=== PATIENT | female | born 1955 | race Caucasian/White ===

== ENCOUNTER 2023-06-16 10:30 | Outpatient (RCR) | payer BC, MEDICARE, SELFPAY | END 2023-06-16 12:48 | disposition home or self-care (01) | PROVIDERS: PCP Family Medicine; Visit Provider Family Medicine | DX: R07.89 Other chest pain (principal); Z51.89 Encounter for other specified aftercare | CPT/HCPCS: 95992; 97110; 97162 ==

== ENCOUNTER 2023-07-12 18:48 | Emergency (ER) | payer BC, SELFPAY ==
[2023-07-12 19:11] VITALS: BP 165/92; PULSE 81; RESP 18; TEMP 36.6; O2SAT 97; BMI 33.3
--- NOTE | 2023-07-12 19:55 | ED_ITS ---
HPI - General Adult General Chief complaint: Chest Pain Stated complaint: Pain under left breast Time Seen by Provider: 07/12/23 19:54 History of Present Illness HPI narrative: Patient here today with a sharp chest pain developing under left breast after carrying groceries and furniture up her steps. Took a nap thinking that would resolve it, woke up and it was still there but less severe and more uncomfortable . Resolved now . Called her clinic and told to come into the ER for an evaluation. 68-year-old woman presenting to the emergency department with complaint of sharp chest pain underneath her left breast. She says she has had this sensation before in usually occurs after or during a period of exertion. Today had been going up a couple flights of stairs ended up caring something given to her by a friend and directly after this started to have this sharp chest discomfort underneath her left breast. In times before can sometimes feel like her heart is beating hard. She does not recall tachycardia or palpitations otherwise. Pain-free at the moment. Lasted maybe 6 hours or so resolving around time of presentation in the emergency department. Head anticipated seeing her primary next day but was contacted again by triage line recommended to come to the emergency department. She does not have known cardiovascular disease she says. Does take metoprolol reported in our record a 25 mg daily but she says it is 12.5 per dose. She feels generally fatigued being on metoprolol. Did need to take a nap this morning. Has not had any fever. Is not short of breath. There is no nausea or diaphoresis. No rashes/blisters. Does have episodes of ligh theadedness and dizziness historically but was not feeling that here today. There was concern that this might also be related to metoprolol. History of hydrochlorothiazide for blood pressure control but due to some affect on kidney she reports was transition to lisinopril until had lip swelling and now taking metoprolol. Related Data Home Medications Medication Instructions Recorded Confirmed mirtazapine 30 mg tablet 15 mg PO .hs 08/04/22 08/04/22 metoprolol succinate 25 mg 25 mg PO DAILY 07/12/23 07/12/23 tablet,extended release 24 hr Allergies Allergy/AdvReac Type Severity Reaction Status Date / Time lisinopril Allergy Intermediate Swelling Verified 07/12/23 19:03 of Lip/Tongue/Throat Penicillins Allergy Mild Diarrhea Verified 08/04/22 16:19 Sulfa (Sulfonamide Allergy Mild Diarrhea Verified 08/04/22 16:19 Antibiotics) Review of Systems Status of ROS: Reports: 6 or more systems reviewed and unremarkable except as noted in History and below [facility] Social History Smoking Status: Never smoker Do you use any of these nicotine containing products: None Second hand tobacco smoke exposure: No How often do you have a drink containing alcohol: never How often do you have six or more drinks on one occasion: Never AUDIT-C Alcohol total score: 0 Non-prescribed substance use: denies use service: No Exam 2 Narrative: Exam Narrative: Very pleasantly talkative. NAD. Breathing easily. No JVD. Cranial nerves 2- 12 intact. Lungs are clear. Heart in a regular rate and rhythm. There is a 1/6 systolic murmur which she thinks might be new. Abdomen is overweight soft and nontender. Lower extremities with maybe a little dependent bilateral edema, nonpitting. Moving all extremities without difficulty, with good strength. She is well-perfused. Not able to reproduce this discomfort to palpation about the chest. No swellings there. Const: Vital Signs, click to edit/add: Vital Signs - 24 hr 07/12/23 19:11 07/12/23 21:00 07/12/23 21:05 Temperature 97.9 F Pulse Rate [Right Pulse Oximeter] 81 Pulse Rate [orthos tatic lying] 70 Pulse Rate [orthos tatic sitting] 75 Pulse Rate [orthos tatic standing] Respiratory Rate 18 Blood Pressure [Ri ght Upper Arm] 165/92 H Blood Pressure [or thostatic lying] 144/87 H 147/98 H Blood Pressure [or thostatic sitting] 147/98 H Blood Pressure [or thostatic standing ] Pulse Oximetry 97 Oxygen Delivery Me thod Room Air 07/12/23 21:10 Temperature Pulse Rate [Right Pulse Oximeter] Pulse Rate [orthos tatic lying] Pulse Rate [orthos tatic sitting] Pulse Rate [orthos tatic standing] 77 Respiratory Rate Blood Pressure [Ri ght Upper Arm] Blood Pressure [or thostatic lying] Blood Pressure [or thostatic sitting] Blood Pressure [or thostatic standing ] 150/91 H Pulse Oximetry Oxygen Delivery Me thod Documenting provider has reviewed patient's vital signs: yes Course Vital Signs Vital signs: Initial Vital Signs Temperature 97.9 F 07/12/23 19:11 Temperature Source Temporal Artery Scan 07/12/23 19:11 Pulse Rate 81 07/12/23 19:11 Pulse Rhythm Regular 07/12/23 19:11 Respiratory Rate 18 07/12/23 19:11 Blood Pressure 165/92 H 07/12/23 19:11 Blood Pressure Mean 116 H 07/12/23 19:11 Blood Pressure Position Sitting 07/12/23 19:11 Pulse Oximetry 97 07/12/23 19:11 Oxygen Delivery Method Room Air 07/12/23 19:11 Vital Signs Temperature 97.9 F 07/12/23 19:11 Pulse Rate 81 07/12/23 19:11 Respiratory Rate 18 07/12/23 19:11 Blood Pressure 165/92 H 07/12/23 19:11 Pulse Oximetry 97 07/12/23 19:11 Oxygen Delivery Method Room Air 07/12/23 19:11 Temperature 97.9 F 07/12/23 19:11 Pulse Rate 77 07/12/23 21:10 Respiratory Rate 18 07/12/23 19:11 Blood Pressure 150/91 H 07/12/23 21:10 Pulse Oximetry 97 07/12/23 19:11 Oxygen Delivery Method Room Air 07/12/23 19:11 Medical Decision Making MDM Narrative Medical decision making narrative: Would be prudent to evaluate for ischemic cardiovascular disease. Will be monitoring on air sampling and monitoring for potential arrhythmia. Does sound somewhat anginal this discomfort. Perhaps heart failure though not really evidenced on physical exam. Look for pneumonia, pneumothorax, the pulmonary mass or unusual mediastinum. Does not appear to have sustained an injury to the chest wall; not reproducible on physical exam and furthermore this has occurred before. Will need to evaluate orthostatics. Might consider some other options to beta-jahaira She notes a history of aortic stenosis on further recollection. Orthostatics were normal and Ms. Kim was asymptomatic Perhaps aortic stenosis in combination with a beta-jahaira might be more challenging to physical exertion/activities. However was not orthostatic here today. Not able to do cardiac echo here in the ER at this time and reports relatively recent one. Chest x-ray reviewed by me other than port is unremarkable Overall well. Labs are reassuring. No events on monitor See patient discharge plan Medical Records Medical records reviewed: Yes I reviewed the patient's medical records Lab Data Lab results reviewed: Yes I reviewed the patient's lab results Labs: Lab Results 07/12/23 07/12/23 Range/Units 20:13 20:36 Hgb 14.3 (12.0-16.0) gm/dL Sodium 140 (135-149) mmol/L Potassium 4.4 (3.6-5.1) mmol/L Chloride 104 (96-114) mmol/L Carbon Dioxide 30 (20-32) mmol/L Anion Gap 6 L (7-15) mEq/L BUN 16 (7-30) mg/dL Creatinine 0.8 (0.5-1.5) mg/dL Estimated Creat Clear 49.12 Estimated GFR 81 ml/min Glucose 154 H (60-115) mg/dL Calcium 9.9 (8.4-10.6) mg/dL Troponin I < 0.01 L (0.01-0.04) ng/mL C-Reactive Protein < 0.5 L (0.5-1.0) mg/dL NT-Pro-B Natriuret Pep 101 pg/mL POC Troponin I 0.00 L (0.01-0.04) ng/ml ECG Data Attestation: I personally reviewed and interpreted this ECG as follows: Discharge Plan Discharge Clinical Impression: Chest pain Patient Disposition: Home, Self-Care Condition: Stable Additional Instructions: A pleasure taking care of you tonight. All your labs and chest x-ray looked good. There were no events on heart monitor. Your welcome to take copies of these labs and this EKG to your follow-up appointment with your primary care provider. I am sure they be happy to discuss your concerns related to medication. Might want to discuss whether not you would like to do further evaluation of this chest pain given that you had fairly recent stress test/echocardiogram. Otherwise return for persistent increased chest pain, particularly associated with shortness of breath, diaphoresis, nausea. Prescriptions: No Action mirtazapine 30 mg tablet 15 mg PO .hs metoprolol succinate 25 mg tablet extended release 24 hr 25 mg PO DAILY Follow Up/Referrals: Mary Garsia, DO [Primary Care Provider] - Stand Alone Forms: [facility]
--- NOTE | 2023-07-12 20:13 | CRLHL7_ITS ---
For Patients: As a result of the Century Cures Act, medical imaging exams and procedure reports are released immediately into your electronic medical record. You may view this report before your referring provider. If you have questions, please contact your health care provider. INDICATION: Left-sided chest pain COMPARISON: None TECHNIQUE: PA and lateral views of the chest were acquired FINDINGS: TUBES AND LINES: Right IJ port appears to be normally located HEART AND MEDIASTINUM: The heart size is normal. The mediastinal contour appears normal for patient age. LUNGS AND PLEURAL SPACES: The lungs appear normal.The pleural spaces are unremarkable. OSSEOUS STRUCTURES: Age-appropriate appearance. No acute focal finding. IMPRESSION: No evidence of active pulmonary disease. Right IJ port normally located. Dictated by Med Moreno MD @ 07/12/2023 8:59:04 PM (Electronically Signed)
[2023-07-12 20:48] LABS: Hemoglobin* 14.3 gm/dL (12.0-16.0)
[2023-07-12 21:00] VITALS: BP 144/87; PULSE 70
[2023-07-12 21:05] VITALS: BP 147/98; PULSE 75
[2023-07-12 21:06] LABS: Chloride* 104 mmol/L (96-114); Potassium* 4.4 mmol/L (3.6-5.1); Sodium* 140 mmol/L (135-149)
[2023-07-12 21:08] LABS: Creatinine* 0.8 mg/dL (0.5-1.5); Est. Creatinine Clearance* 49.12; Estimated Glomerular Filt Rate 81 ml/min
[2023-07-12 21:09] LABS: Anion Gap 6 mEq/L (7-15); Blood Urea Nitrogen* 16 mg/dL (7-30); Carbon Dioxide* 30 mmol/L (20-32)
[2023-07-12 21:10] VITALS: BP 150/91; PULSE 77
[2023-07-12 21:10] LABS: Calcium* 9.9 mg/dL (8.4-10.6); Glucose* 154 mg/dL (60-115)
[2023-07-12 21:17] LABS: C Reactive Protein* < 0.5 mg/dL (0.5-1.0)
[2023-07-12 21:28] LABS: NT Pro B Type NatriureticPept* 101 pg/mL; Troponin I* < 0.01 ng/mL (0.01-0.04)
== END 2023-07-12 22:43 | disposition home or self-care (01) ==
PROVIDERS: Emergency Provider Family Medicine; PCP Family Medicine
DX: R07.9 Chest pain, unspecified (principal)
CPT/HCPCS: 36415; 71045; 80048; 83880; 84484; 85018; 86140; 93005; 99284; 99285

== ENCOUNTER 2024-01-24 14:00 | Outpatient (RCR) | payer BC, SELFPAY | END 2024-05-23 23:59 | disposition home or self-care (01) | PROVIDERS: PCP Family Medicine; Visit Provider Physician Assistant | DX: M25.562 Pain in left knee (principal); Z51.89 Encounter for other specified aftercare | CPT/HCPCS: 97110; 97162 ==

== ENCOUNTER 2024-06-05 12:35 | Outpatient (CLI) | payer BC, SELFPAY ==
--- OUTSIDE RECORDS SUMMARY | 2024-06-05 12:42 | XMS_ITS | Clinical Summary ---
Author Organization [facility] Address [address] [address] Care Team Providers Care Manager Target Name Role Phone Needs Pcp, Assignment Primary Care Provider [phone] Source Comments You are receiving this document as you are listed as the primary care provider,follow-up provider, or the patient has been referred to you for consultation.This is in compliance with the Medicare and[facility] E[facility] Incentive Program,which states Providers who transition their patient to another setting of careor provider of care or refers their patient to another provider of care shouldprovide summary care record for each transition of care or referral. [facility] Allergies Active Allergy Reactions Criticality Noted Date Comments Penicillins Other, see comments 08/02/2021 Diarrhea Medications Medication Sig Dispensed Refills Start Date End Date Status omega-3 fatty acids (FISH OIL) 1000 MG capsule Take 1 Capsule by mouth daily. Active mirtazapine (REMERON) 30 MG tablet Take 30 mg by mouth. 05/20/2021 Active lisinopril (ZESTRIL) 20 MG tablet Take 1 Tablet by mouth daily. 05/20/2021 Active fluticasone propionate (FLONASE) 50 MCG/ACT nasal solution 2 Sprays by Nasal route. 05/20/2021 Active cetirizine (ZYRTEC) 10 MG tablet Take 1 Tablet by mouth daily. 05/20/2021 Active buPROPion (WELLBUTRIN XL) 150 MG 24 hour release tablet 06/16/2021 Active aspirin 325 MG tablet Take 325 mg by mouth. Active amphetamine-dextroamp hetamine (ADDERALL) 20 MG tablet 06/16/2021 Active ALBUterol sulfate HFA 108 (90 Base) MCG/ACT inhaler INHALE TWO PUFFS BY MOUTH FOUR TIMES A DAY NEEDED 05/20/2021 Active acyclovir (ZOVIRAX) 400 MG tablet TAKE ONE TABLET BY MOUTH THREE TIMES A DAY FOR 5 DAYS NEEDED FOR OUTBREAK 03/30/2021 Active cyanocobalamin 100 MCG tablet Take 50 mcg by mouth daily. Active Pyridoxine HCl (VITAMIN B-6) 100 MG tablet Take 100 mg by mouth daily. Active folic acid 1 MG tablet Take 1 mg by mouth daily. Active cholecalciferol (VITAMIND3) 50 MCG (2000 UT) tablet Take 2,000 Units by mouth daily. Active Active Problems Problem Noted Date Diagnosed Date Thyroid nodule 08/02/2021 Social History Tobacco Use Types Packs/Day Years Used Date Smoking Tobacco: Never Smokeless Tobacco: Never Sex and Gender Information Value Date Recorded Sex Assigned at Not on file Gender Identity Not on file Sexual Orientation Not on file Last Filed Vital Signs Vital Sign Reading Time Taken Comments Blood Pressure 141/88 08/02/2021 8:32 AM CDT Pulse 85 08/02/2021 8:32 AM CDT Temperature - - Respiratory Rate - - Oxygen Saturation - - Inhaled Oxygen Concentration - - Weight 86.6 kg (190 lb 14.4 oz) 08/02/2021 8:32 AM CDT Height 165.1 cm (5' 5) 08/02/2021 8:32 AM CDT Body Mass Index 31.77 08/02/2021 8:32 AM CDT Plan of Treatment Health Maintenance Due Date Last Done Comments Colon Cancer Screening Plan Due 1955 Hep C Screening (Preventive Services) 1955 Medicare Annual Wellness Visit 1955 Cholesterol 2001 Zoster/Shingles (1 of 2) 2006 Pneumococcal 65+ Yrs (1 - PCV) 2021 Mammogram 06/23/2022 06/23/2021 COVID-19 Vaccine (3 - 2022-2 4 season) 2023 03/29/2021, 03/01/2021 Influenza (#1) 2024 DTaP/Tdap/Td (2 - Tdap) 06/19/2028 06/19/2018 Dexa Completed 06/23/2021 HepA Aged Out No longer eligi ble based on patient's age to complete this topic HepB Aged Out No longer eligi ble based on patient's age to complete this topic Hib Aged Out No longer eligi ble based on patient's age to complete this topic IPV (Polio) Aged Out No longer eligi ble based on patient's age to complete this topic MCV4 Aged Out No longer eligi ble based on patient's age to complete this topic Care Teams Manager Target Relationship Specialty Start Date End Date Needs Pcp, [place], [place] [id number] PCP - General 05/13/22
--- OUTSIDE RECORDS SUMMARY | 2024-06-05 12:42 | XMS_ITS | Clinical Summary ---
Author Organization [facility] Address [place], [place] [address] Care Team Providers Care Bagging Salvager Name Role Phone RyanMary recinos Primary Care Provider [phone] Carmenza Crowder MD Unavailable [phone] Laura Myers MD Unavailable [phone] Unavailable [phone] Allergies Active Allergy Reactions Criticality Noted Date Comments Amlodipine Intolerance-Can't Take 12/01/2022 Multiple random symptoms reported. Unclear if related to medication. See message 12/01/22 Rosuvastatin Myalgia 02/13/2019 Fentanyl Itching 04/27/2020 Hydrochlorothiazide Hypokalemia 12/01/2022 Atorvastatin Myalgia 08/03/2017 Lisinopril Angioedema High 11/08/2022 Lip swelling Enoxaparin Flushing 05/07/2020 Chest tightness Penicillins Diarrhea 10/02/2012 Loose stool Medications Medication Sig Dispensed Refills Start Date End Date Status Fish Oil-[place]-3 Fatty Acids (FISH OIL) 300-1,000 mg cap Take 1 capsule by mouth once daily. Active albuterol HFA (PRO-AIR; VENTOLIN; PROVENTIL) 90 mcg/actuation inhalerIndication s:Bronchitis,Coug h, unspecified type,Chest tightness INHALE TWO PUFFS BY MOUTH FOUR TIMES DAILY NEEDED 18 g 1 09/21/20 22 Active EPINEPHrine (EPIPEN) 0.3 mg/0.3 mL auto-injectorIndi cations:Angioedem a, initial encounter Inject 0.3 mg (1 pen) intramuscular each time if needed for Allergic Reaction. 2 Each 3 11/08/19 23 Active azelastine 137 mcg/actuation (ASTELIN) nasal sprayIndications: Angioedema, initial encounter Inhale 1 [place] into affected nostril(s) two times daily. 90 mL 1 04/05/20 Active blood-glucose meterIndications: Uncontrolled type 2 diabetes mellitus with hyperglycemia (HC) by Not Applicable route. Dispense meter, test strips, lancets covered by pt ins. E11.9 NIDDM type II - Test 2 times/day. Reason: New diabetes 1 Each 05/25/20 23 Active fluticasone (50 mcg per actuation) nasal solution (FLONASE)Indicati ons:Rhinitis, unspecified type SPRAY TWO SPRAYS INTO EACH NOSTRIL ONCE DAILY DIRECTED 48 g 3 09/07/20 Active cholecalciferol (Vitamin D-3) 2,000 unit capsuleIndication s:Vitamin D deficiency Take 2 Capsules (4,000 units) by mouth once daily. 180 Capsule 3 11/07/19 24 Active Additional Information Patient taking differently: 2,000 unitOral DAILY, Reported on 04/10/2024 mirtazapine (REMERON) 30 mg tabletIndications :Generalized anxiety disorder,Depressi on, unspecified depression type,Obsessive-co mpulsive disorder, unspecified type Take 0.5 Tablets (15 mg) by mouth at bedtime. 90 Tablet 3 11/14/19 24 Active omeprazole 20 mg tabletIndications :Throat clearing Take 1 Tablet (20 mg) by mouth once daily before a meal. 30 Tablet 3 12/26/19 24 Active Additional Information Patient taking differently:20 mg Oral ONCE DAILY BEFORE A MEAL,PRN, Indications: gastroesophageal reflux disease, Reported on 03/18/2024 miscellaneous medical supply (Blood Pressure Cuff) miscIndications:H TN (hypertension) As directed. BP cuff for home monitoring. Diagnosis: htn 1 Each 01/04/20 24 Active FreeStyle Claudia 3 Sensor for continuous blood glucose monitor (CGM)Indications: Uncontrolled type 2 diabetes mellitus with hyperglycemia (HC) To be used to read blood sugars, follow deputy sheriff bailiff directions. 6 Each 3 01/25/20 24 Active FreeStyle Claudia 3 [place] for continuous blood glucose monitor (CGM)Indications: Uncontrolled type 2 diabetes mellitus with hyperglycemia (HC) To be used to read blood sugars follow deputy sheriff bailiff directions. 1 Each 02/08/20 24 Active metFORMIN (GLUCOPHAGE XR) 500 mg Extended-Release tabletIndications :Uncontrolled type 2 diabetes mellitus with hyperglycemia (HC) Take 1 Tablet (500 mg) by mouth once daily with evening meal. 90 Tablet 3 02/12/20 24 Active acyclovir (ZOVIRAX) 400 mg tabletIndications :Genital herpes simplex, unspecified site TAKE ONE TABLET BY MOUTH THREE TIMES A DAY FOR 5 DAYS NEEDED FOR OUTBREAK. 90 Tablet 1 02/19/20 24 Active spironolactone (ALDACTONE) 25 mg tabletIndications :HTN (hypertension) Take 1 Tablet (25 mg) by mouth once daily in the morning. 04/04/20 24 Active nystatin powder (Nyamyc) powderIndications :Skin yeast infection APPLY 1 STRIP TOPICALLY TO AFFECTED AREA(S) 3 TIMES DAILY 60 g 1 04/10/20 24 Active buPROPion (WELLBUTRIN XL) 150 mg Extended-Release tabletIndications :Depression, major, in remission (HC) Take 1 Tablet (150 mg) by mouth once daily in the morning. 90 Tablet 3 04/24/20 24 Active fexofenadine (Allergy Relief, fexofenadine,) 180 mg tabletIndications :Seasonal allergies TAKE ONE TABLET BY MOUTH ONCE EVERY DAY . DO NOT CRUSH OR CHEW. 90 Tablet 3 05/06/20 24 Active dextroamphetamine -amphetamine (ADDERALL XR) 15 mg Extended-Release capsuleIndication s:Attention deficit hyperactivity disorder (ADHD), unspecified ADHD type Take 1 Capsule (15 mg) by mouth once daily in the morning 20 Capsule 05/22/20 24 Active diclofenac topical (VOLTAREN) 1 % gelIndications:Os teoarthritis of left knee, unspecified osteoarthritis type Apply 4 g topically to affected area(s) 4 times daily if needed (knee pain). 450 g 05/20/20 24 Active dextroamphetamine -amphetamine (AdderalL) 10 mg tabletIndications :Attention deficit hyperactivity disorder (ADHD), unspecified ADHD type Take 1 Tablet (10 mg) by mouth once daily. 10 Tablet 05/22/20 24 024 Active dextroamphetamine -amphetamine (Adderall XR) 15 mg Extended-Release capsuleIndication s:Attention deficit hyperactivity disorder (ADHD), unspecified ADHD type Take 1 Capsule (15 mg) by mouth once daily in the morning. 30 Capsule 04/24/20 24 024 Discontinued methylPREDNISolon e (Medrol, Chu,) 4 mg tabletIndications :Chronic pain of left knee Take by mouth as instructed per packaging. 21 Tablet 05/17/20 24 024 Discontinued(* Patient states no longer taking) metroNIDAZOLE 0.75% vaginal (METROGEL) 0.75 % (37.5mg/5 gram) vaginal gelIndications:Ba cterial vaginosis Insert 1 Applicatorful into the vagina at bedtime for 5 days. 70 g 05/30/20 24 024 Active Problems Problem Noted Date Diagnosed Date Newly diagnosed diabetes 11/08/2022 Thyroid nodule 07/06/2020 Overview: FNA 06/2020 Benign Colloid Nodule. (0-3% risk becoming malignant overtime) Pperiodic ultrasound monitoring of benign thyroid nodules recommended, initially at 12 to 24 months, then at increasing intervals over time (eg, two to five years) per UTD Pelvic mass 04/28/2020 Cervical high risk HPV (human papillomavirus) te st positive 04/01/2020 Overview: 2005 Abnormal pap 2006 Abnormal pap 2007 Abnormal pap 2007 [place]: result unknown 09/13/2013 NIL/HPV Negative 08/21/2017 UNS/HPV Negative 04/01/2020 NIL/HPV Positive; HPV 16/18 Negative Plan: Repeat Pap/HPV testing in 1 year (DUE 03/2021) Prediabetes 06/19/2018 Genital herpes 11/07/2016 Hyperlipidemia 04/22/2014 Hypertension 01/30/2013 Fibromyalgia 01/30/2013 OCD (obsessive compulsive disorder) 01/30/2013 Overview: Hoarding Generalized anxiety disorder 01/30/2013 Depression 01/30/2013 Attention deficit disorder without mention of hy peractivity 09/12/2012 Overview: Gets Adderall 20mg daily, 28 day supplies Resolved Problems Problem Noted Date Diagnosed Date Resolved Date Ovarian cancer on right 11/08/202211/07 Delusions 07/23/2015 10/26/2023 Anxiety state, unspecified 09/12/2012 0 01/30/2013 Overview: OCD spectrum as well as PTSD aspects both rather strong, with rule out on full spectrum OCD Encounters Date Type Department Care Team Description 06/04/2024 11:00 AM CDT Procedure Only [facility] [address] [facility] [place] [address] Rafael Shin L Ac Acupuncture 06/04/2024 Travel 05/30/2024 Orders Only [facility] [facility] [place] [address] Mary Garsia, <No scans attached> 05/29/2024 10:50 AM CDT Office Visit [facility] [address] [facility] [place] [address] Mary Garsia DO Leg Pain/problem (heaviness) 05/28/2024 11:30 AM CDT Office Visit [facility] [address] [place] [address] Jing Garcia PA Follow Up (Knee pain-was supposed to have MRI but it was cancelled) 05/28/2024 Travel 05/27/2024 Nurse Triage [facility] [address] [place] [address] Mary Garsia DO Leg Pain/problem 05/23/2024 Telephone [facility] [address] [place] [address] Abstract (did you call the patient today ? ) 05/20/2024 7:55 AM CDT Office Visit [facility] [address] [place] [address] Mary Garsia DO Medication Management 05/19/2024 Travel 05/19/2024 Refill [facility] [address] [place] [address] Mary Garsia DO Refill Request (Dextroamphetamine- amphetamine) 05/17/2024 1:30 PM CDT Office Visit [facility] [address] [place] [address] Jing Garcia PA Knee Pain/problem (Started having knee problem a few years ago-has been using knee sleeve-swells and hurts on the outside) 05/17/2024 11:00 AM CDT Procedure Only [address] [address] Rafael Shin L Ac Acupuncture 05/17/2024 Travel 05/17/[address] [address] Zoie Acuña PA Referral 05/16/[address] [address] Zoie Acuña PA Questions (medical messaging) 05/15/2024 Medical Messaging [address] [address] Mary Garsia DO Referrals for P.T.where do I see them or who would I ask 05/14/2024 9:00 AM CDT Ancillary Procedure [address] [address] 05/14/2024 Travel 05/07/2024 11:00 AM CDT Procedure Only [address] [address] Rafael Shin L Ac Acupuncture 05/07/2024 8:15 AM CDT Office Visit [address] [address] Zoie Acuña PA Back Pain 05/07/2024 Travel 05/05/[address] [address] Mary Garsia DO Refill Request (Allergy Relief (Fexofenadine)) 04/26/2024 11:00 AM CDT Procedure Only [facility] [address] [facility] [address] Rafael Shin L Ac Acupuncture 04/26/2024 Travel 04/24/2024 7:55 AM CDT Office Visit [facility] [address] [place] [address] Mary Garsia DO Follow Up 04/24/2024 Travel 04/19/2024 11:00 AM CDT Procedure Only [facility] [address] [place] [address] Rafael Shin L Ac Acupuncture 04/19/2024 Travel 04/15/2024 2:55 PM CDT Office Visit [facility] [address] [place] [address] Zoie Acuña PA Bite 04/15/2024 11:30 AM CDT Orders Only [facility] [place] [address] Lab, [facility] 04/15/2024 Travel 04/12/2024 11:00 AM CDT Procedure Only [facility] [address] [place] [address] Rafael Shin L Ac Acupuncture 04/12/2024 Travel 04/10/2024 7:55 AM CDT Office Visit [facility] [address] [facility] [address] Mary Garsia DO Dizziness 04/10/2024 Travel 04/05/2024 11:00 AM CDT Procedure Only [facility] [address] Rafael Shin L Ac Acupuncture 04/05/2024 Orders Only [facility] Scanner 1 scan: (1-Ord) [facility], 04/05/2024 04/05/2024 Travel 04/04/2024 8:20 AM CDT Office Visit [facility] [address] [facility] [address] Mary Garsia DO Follow Up 04/03/2024 Travel 04/02/2024 4:51 PM CDT - 04/02/2024 11:59 PM CDT Hospital Encounter [facility] [address] [place] [address] Mary Garsia, Left lower quadrant abdominal pain; History of ovarian cancer 04/02/2024 Travel 03/28/2024 11:00 AM CDT Procedure Only [facility] [address] [facility] [place] [address] Rafael Shin L Ac Acupuncture 03/28/2024 Travel 03/27/2024 1:05 PM CDT Office Visit [facility] [address] [facility] [place] [address] Mary Garsia DO Follow Up 03/27/2024 Travel 03/18/2024 11:00 AM CDT Procedure Only [facility] [address] [place] [address] Rafael Shin L Ac Acupuncture 03/18/2024 7:30 AM CDT Office Visit [facility] [address] [facility] [place] [address] Mary Garsia DO Pain (Left side pain on and off 1 month) 03/18/2024 Nurse Triage [facility] [address] [place] [address] Maria Victoria Eduardo MD Medication Problem 03/17/2024 Travel 03/16/2024 Telephone [facility] [address] [facility] [place] [address] Christi Pearce DO Abnormal Lab Results 03/16/2024 Nurse Triage [facility] [address] [place] [address] Mary Garsia DO Vaginal Problem 03/15/2024 1:05 PM CDT Office Visit [facility] [address] [place] [address] Maria Victoria Eduardo MD Pelvis Pain/problem (Bilateral pelvic pain off and on x 2 weeks /Some discomfort when urinating ) 03/15/2024 Travel 03/11/2024 11:00 AM CDT Procedure Only [facility] [address] [facility] [address] Rafael Shin L Ac Acupuncture 03/11/2024 7:30 AM CDT Office Visit [facility] [address] [facility] [address] Mary Garsia DO Medication Management (abilify) 03/11/2024 Travel 03/07/2024 1:00 PM CDT Procedure Only [facility] [address] [facility] [address] Rafael Shin L Ac Acupuncture 03/07/2024 Travel 03/05/2024 9:10 AM CDT Office Visit [facility] [address] [facility] [address] Mary Garsia, Blood Pressure (compare blood pressure machines. ); Medication Management (Adderall - check/Abilify - took for 2 days then stopped. feeling off balance, blurry vision/Metformin - heartburn); Cough (consistantly clearing throat and coughing up phlegm ); Vaginal Problem (bump in vaginal area, for 2 days) from Last 3 Months Immunizations Name Administration Dates Next Due COVID-19 vaccine (Moderna 100mcg/0.5mL) SHELLEY FENG 03/29/2021,03/01/2021 COVID-19 vaccine (Pfizer-Bio NTech 30mcg/0.3mL) 12YO+ BIVALENT SHELLEY FENG 09/21/2022 Tdap 06/19/2018 Family History Medical History Relation Name Comments Psychiatric illness Father Dementia , depression Cancer-breast Maternal Grandmother Heart Disease Mother Psychiatric illness Mother Depressi on, anxiety Cancer-breast Other Maternal Cousin x2 Cancer-breast Paternal Grandmother Cancer-ovarian No Family History Relation Name Status Comments Father Maternal Grandmother Mother Alive Other Maternal Cousin Paternal Grandmother Sister Alive Social History Tobacco Use Types Packs/Day Years Used Date Smoking Tobacco: Never Passive Smoke Exposure: Never Smokeless Tobacco: Never Tobacco Cessation:Counseling Given: Yes Alcohol Use Standard Drinks/Week Comments Yes 0 (1 standard drink = 0.6 oz pur e alcohol) PHQ-2 Answer Date Recorded PHQ-2 TOTAL SCORE 6 04/24/2024 Social Connections Answer Date Recorded Frequency of Communication with Friends and Fami ly 0 03/27/2024 Alcohol Use Answer Date Recorded How often do you have a drink containing alcohol ? 2 09/21/2022 How many drinks containing a lcohol do you have on a typical day when you are drinking? 0 09/21/2022 How often do you have five or more drinks on one occasion? 0 09/21/2022 Financial Resource Strain Answer Date R ecorded Difficulty of Paying Living Expenses 3 03/27/2024 Difficulty of Paying Living Expenses Not on file 03/27/2024 Food Insecurity Answer Date Recorded Worried About Running Out of Food in the Last Ye ar 1 03/27/2024 Transportation Needs Answer Date Record ed Lack of Transportation (Medical) 1 03/27/2024 Housing Stability Answer Date Recorded Unable to Pay for Housing in the Last Year 1 03/27/2024 Sex and Gender Information Value Date Recorded Sex Assigned at Not on file Gender Identity Female 04/03/2023 8:44 PM CDT Sexual Orientation Not on file Obstetrics History Para Term AB IAB SAB Ectopic Multiple Livin g Live Births 2 2 2 2 Date Outcome GA Total Labor Labor/2nd/3rd Weight Sex Type Anes PTL Joleen A1 A5 Name Clin Term Term Last Filed Vital Signs Vital Sign Reading Time Taken Comments Blood Pressure 140/80 05/29/2024 11:42 AM CDT Pulse 83 05/29/2024 10:53 AM CDT Temperature 37.2 ??C (99 ??F) 04/15/2024 10:48 AM CDT Respiratory Rate 14 05/11/2020 8:00 AM CDT Oxygen Saturation 97% 05/29/2024 10:53 AM CDT Inhaled Oxygen Concentration - - Weight 80.3 kg (177 lb) 05/29/2024 10:53 AM CDT Height 165.7 cm (5' 5.25) 03/15/2024 1:18 PM CD T Body Mass Index 29.23 03/15/2024 1:18 PM CDT Plan of Treatment Upcoming Encounters Date Type Department Care Team (Late st Contact Info) Description 06/13/2024 1:05 PM CDT Office Visit [facility] [address] [place] [address] Mary Garsia DO [address] [facility] [address] 06/14/2024 11:00 AM CDT Procedure Only [facility] [address] [facility] [place] [address] Rafael Shin L Ac [address] [facility] [address] 06/19/2024 8:20 AM CDT Office Visit [facility] [address] [facility] [address] Mary Garsia DO [address] [place] [address] 2024 11:00 AM CDT Procedure Only [facility] [address] [place] [address] Rafael Shin L Ac [address] [place] [address] 06/27/2024 1:05 PM CDT Office Visit [facility] [address] [place] [address] Mary Garsia DO [address] [place] [address] 07/10/2024 8:45 AM CDT Office Visit [facility] [address] [place] [address] Mary Garsia DO [address] [place] [address] 07/18/2024 7:55 AM CDT Office Visit [facility] [address] [place] [address] Mary Garsia DO [address] [place] [address] Health Maintenance Due Date Last Done Comments Pneumococcal series for age 65+ (1 of 2 - PCV) 1962 Colonoscopy through age 75 2001 Zoster (shingles) series for age 50+ (1 of 2) 2006 Medicare Wellness for age 65+ 2021 COVID-19 vaccine series ( season) 2023 09/21/2022, 10/22/2021, 03/29/2021, Additional history exists Influenza for age 65+ 07/07/2024 Mammogram for age 45-75 11/13/2024 11/13/19, 07/25/2022, 06/23/2021, Additional history exists BMI (ht and wt on same day) for age 18+ 03/15/2025 03/15/2024, 12/05/2022, 05/20/2021, Additional history exists Depression screening for age 12+ 04/24/2025 04/24/2024, 04/18/2023, 09/21/2022, Additional history exists Lipids for age 45-75 02/07/2028 02/06/2023, 09/21/2022, 06/14/2021, Additional history exists Tetanus booster 06/19/2028 06/19/2018 Tdap Completed 06/19/2018 DEXA/DXA scan for age 65+ Completed 06/23/2021 Hepatitis C screening for ag e 18-79 Completed 03/15/2022 Medical Devices Implanted Type Area Field Hauler Device Identifier Shelf Expiration Date Model / Serial / Lot Adhesion Barrier 5x6in Seprafilm Absorb - [id number] Implanted:Qty: 5 on 05/07/2020 by Laura Myers MD at [facility] [employer] 10/05/2022 [id number] / / [id number] Procedures Procedure Name Priority Date/Time Associated Diagnosis Comments ACUPUNCTURE PLAN OF CARE Routine 06/04/2024 10:53 AM CDT Other low back pain PROTIME-INR Routine 05/29/2024 12:15 PM CDT Bruising CREATININE Routine 05/29/2024 12:15 PM CDT HTN (hypertension) TRICHOMONAS, TERRANCE, AND BACTERIAL VAGINOSIS BY SAMMY Routine 05/29/2024 11:45 AM CDT Vaginal burning HEPATIC FUNCTION PANEL Add On 05/28/2024 12:43 PM CDT Bruising CBC WITH AUTO DIFFERENTIAL Routine 05/28/2024 12:43 PM CDT Easy bruising IRON PLUS IRON BINDING CAP Routine 05/28/2024 12:43 PM CDT Easy bruising FERRITIN Routine 05/28/2024 12:43 PM CDT Easy bruising VITAMIN B12 Routine 05/28/2024 12:43 PM CDT Easy bruising CBC WITH AUTO DIFFERENTIAL Routine 05/28/2024 12:43 PM CDT Easy bruising ACUPUNCTURE PLAN OF CARE Routine 05/17/2024 11:07 AM CDT Other low back pain US THYROID/PARATHYROID Routine 05/14/2024 9:28 AM CDT Thyroid nodule ACUPUNCTURE PLAN OF CARE Routine 05/07/2024 10:48 AM CDT Other low back pain ACUPUNCTURE PLAN OF CARE Routine 04/26/2024 12:07 PM CDT Other low back pain ACUPUNCTURE PLAN OF CARE Routine 04/26/2024 10:51 AM CDT Other low back pain TRICHOMONAS, TERRANCE, AND BACTERIAL VAGINOSIS BY SAMMY Routine 04/24/2024 8:44 AM CDT Vaginal burning ACUPUNCTURE PLAN OF CARE Routine 04/19/2024 10:55 AM CDT Other low back pain POTASSIUM Routine 04/15/2024 11:24 AM CDT HTN (hypertension) CREATININE Routine 04/15/2024 11:24 AM CDT HTN (hypertension) HEMOGLOBIN A1C Routine 04/15/2024 11:24 AM CDT Uncontrolled type 2 diabetes mellitus with hyperglycemia (HC) ANAPLASMA EHRLICHIA DETECTION PCR Routine 04/15/2024 11:24 AM CDT Rash BABESIA MICROTI SHANNA IGG IGM PANEL Routine 04/15/2024 11:24 AM CDT Rash LYME SCREEN W/REFLEX Routine 04/15/2024 11:24 AM CDT Rash ANAPLASMA EHRLICHIA SHANNA PANEL Routine 04/15/2024 11:24 AM CDT Rash TRICHOMONAS, TERRANCE, AND BACTERIAL VAGINOSIS BY SAMMY Routine 04/15/2024 11:00 AM CDT Vaginosis ACUPUNCTURE PLAN OF CARE Routine 04/12/2024 10:58 AM CDT Other low back pain ACUPUNCTURE PLAN OF CARE Routine 04/05/2024 11:05 AM CDT Other low back pain SCAN-EYE EXAM 04/05/2024 12:00 AM CDT US PELVIS COMPLETE TA AND TV Routine 04/02/2024 5:35 PM CDT Left lower quadrant abdominal pain History of ovarian cancer ACUPUNCTURE PLAN OF CARE Routine 03/28/2024 11:02 AM CDT Other low back pain ACUPUNCTURE PLAN OF CARE Routine 03/18/2024 11:00 AM CDT Other low back pain TRICHOMONAS, TERRANCE, AND BACTERIAL VAGINOSIS BY SAMMY Routine 03/15/2024 1:50 PM CDT Vaginal pain URINE CULTURE Add On 03/15/2024 1:14 PM CDT Vaginal pain URINALYSIS MICROSCOPIC Routine 03/15/2024 1:14 PM CDT Vaginal pain UA W/ SEDIMENT EXAM REFLEXED PER CRITERIA Routine 03/15/2024 1:14 PM CDT Vaginal pain ACUPUNCTURE PLAN OF CARE Routine 03/11/2024 11:07 AM CDT Other low back pain ACUPUNCTURE PLAN OF CARE Routine 03/07/2024 12:53 PM CDT Other low back pain XR MAMMO CORETTA BILAT SCREEN Routine 11/13/2023 8:27 AM 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 eGFR 81(L) >90 mL/min/1.7 3m2 05/30/2024 12:39 AM CDT [facility] [employer] [facility] Comment:As of 2022, eG FR is calculated by the CKD-EPI creatinine equation without race adjustment. ??eGFR can be influenced by muscle mass, exercise, and diet. ??The reported eGFR is an estimation only and is only applicable if the renal function is stable. CREATININE 0.80 0.50 - 0.90 mg/dL 05/30/2024 12:39 AM CDT [facility] [employer] [facility] Blood BLOOD SPECIMEN / Unknown Venipuncture / Unknown 05/29/2024 12:15 PM CDT 05/29/2024 12:19 PM CDT Mary Grasia DO CHEMISTRY [facility] [address] [place] [address], * PROTIME-INR (05/29/2024 12:15 PM CDT) INR 0.9 <1.3 05/29/2024 10:06 PM CDT [facility] PROTIME 10.6 10.3 - 12.3 sec 05/29/2024 10:06 PM CDT [facility] Blood BLOOD SPECIMEN / Unknown Venipuncture / Unknown 05/29/2024 12:15 PM CDT 05/29/2024 12:19 PM CDT Narrative [facility] - 05/29/2024 10:06 PM CDT ?Therapeutic Range 2.0-3.0 for most anticoagulated patients 2.5-3.5 or 4.0 for high risk patients The INR is only used for patients on stable oral anticoagulant therapy. It makes no significant contribution to the diagnosis or treatment of patients whose Protime is prolonged for other reasons. INR results are increased when heparin levels exceed 1.0 U/mL, which corresponds to an aPTT >125 seconds if the patient is on UFH. Mary Garsia HEMATOLOGY [facility] [address] [place] [address], * (ABNORMAL) TRICHOMONAS, TERRANCE, AND BACTERIAL VAGINOSIS BY SAMMY (05/29/2024 11:45 AM CDT) Only the most recent of4 resultswithin the time period is included. TERRANCE SPECIES Negative Negative 3:50 AM CDT [facility] TERRANCE GLABRATA Negative Negative 05/30/2024 3:50 AM CDT [facility] TRICHOMONAS VVA Negative Negative 3:50 AM CDT [facility] BACTERIAL VAGINOSIS Positive(A) Negative 05/30/2024 3:50 AM CDT [facility] Other VAGINAL SWAB / Unknown Non-Blood / Unknown 05/29/2024 11:45 AM CDT 05/29/2024 11:58 AM CDT Mary Garsia DO [facility] [address] [place] [address], * (ABNORMAL) CBC WITH AUTO DIFFERENTIAL (05/28/2024 12:43 PM CDT) WHITE BLOOD COUNT 8.7 4.5 - 11.0 thou/cu mm 05/28/2024 12:52 PM CDT [facility] RED BLOOD COUNT 4.79 4.00 - 5.20 mil/cu mm 05/28/2024 12:52 PM CDT [facility] HEMOGLOBIN 14.3 12.0 - 16.0 g/dL 05/28/2024 12:52 PM CDT [facility] HEMATOCRIT 42.1 33.0 - 51.0 % 05/28/2024 12:52 PM CDT [facility] MCV 88 80 - 100 fL 05/28/2024 12:52 PM CDT [facility] MCH 29.9 26.0 - 34.0 pg 05/28/2024 12:52 PM CDT [facility] MCHC 34.0 32.0 - 36.0 g/dL 05/28/2024 12:52 PM CDT [facility] RDW 13.9 11.5 - 15.5 % 05/28/2024 12:52 PM CDT [facility] PLATELET COUNT 347 140 - 440 thou/cu mm 05/28/2024 12:52 PM CDT [facility] MPV 11.3(H) 6.5 - 11.0 fL 05/28/2024 12:52 PM CDT [facility] % NEUT 79.6 % 05/28/2024 12:52 PM CDT [facility] % LYMPH 10.5 % 05/28/2024 12:52 PM CDT [facility] % MONO 7.0 % 05/28/2024 12:52 PM CDT [facility] % EOS 2.3 % 05/28/2024 12:52 PM CDT [facility] % BASO 0.6 % 05/28/2024 12:52 PM CDT [facility] ABSOLUTE NEUTROPHILS 7.0 1.7 - 7.0 thou/cu mm 05/28/2024 12:52 PM CDT [facility] ABSOLUTE LYMPHOCYTES 0.9 0.9 - 2.9 thou/cu mm 05/28/2024 12:52 PM CDT [facility] ABSOLUTE MONOCYTES 0.6 <0.9 thou/cu mm 05/28/2024 12:52 PM CDT [facility] ABSOLUTE EOSINOPHILS 0.2 <0.5 thou/cu mm 05/28/2024 12:52 PM CDT [facility] ABSOLUTE BASOPHILS 0.1 <0.3 thou/cu mm 05/28/2024 12:52 PM CDT [facility] Blood BLOOD SPECIMEN / Unknown Venipuncture / Unknown 05/28/2024 12:43 PM CDT 05/28/2024 12:45 PM CDT Jing VEGA HEMATOLOGY [facility] [address] [place] [address], * IRON PLUS IRON BINDING CAP (05/28/2024 12:43 PM CDT) IRON 86 37 - 145 ug/dL 05/29/2024 1:50 AM CDT [facility] UIBC (UNSATURATED) 289 112 - 347 ug/dL 05/29/2024 1:50 AM CDT [facility] IRON BINDING CAPACITY 375 250 - 400 ug/dL 05/29/2024 1:50 AM CDT [facility] IRON,% SATURATION 23 14 - 50 % 05/29/2024 1:50 AM CDT [facility] Blood BLOOD SPECIMEN / Unknown Venipuncture / Unknown 05/28/2024 12:43 PM CDT 05/28/2024 12:45 PM CDT Jing VEGA CHEMISTRY [facility] [address] [place] [address], * FERRITIN (05/28/2024 12:43 PM CDT) Pathologist [facility] FERRITIN 121.0 15.0 - 150.0 ng/mL 05/29/2024 1:50 AM CDT [facility] Blood BLOOD SPECIMEN / Unknown Venipuncture / Unknown 05/28/2024 12:43 PM CDT 05/28/2024 12:45 PM CDT Jing VEGA CHEMISTRY Performing Organization Address City/[facility] Co de Phone Number [facility] [address] [place] [address], * VITAMIN B12 (05/28/2024 12:43 PM CDT) Pathologist [facility] VITAMIN B12 1,170 232 - 1,245 pg/mL 05/29/2024 1:50 AM CDT [facility] Blood BLOOD SPECIMEN / Unknown Venipuncture / Unknown 05/28/2024 12:43 PM CDT 05/28/2024 12:45 PM CDT Narrative [facility] - 05/29/2024 1:50 AM CDT Biotin supplements may cause clinically significant interference for this test assay. ??If interference is suspected, it is strongly recommended that biotin is discontinued for at least one week prior to retesting. Jing VEGA CHEMISTRY [facility] [address] [place] [address], * (ABNORMAL) LIVER PANEL (HEPATIC FUNCTION PANEL) (05/28/2024 12:43 PM CDT) Pathologist [facility] ALBUMIN 4.8 4.0 - 4.9 g/dL 05/29/2024 1:10 PM CDT [facility] PROTEIN,TOTAL 7.5 6.0 - 8.0 g/dL 05/29/2024 1:10 PM CDT [facility] BILIRUBIN,TOTAL 1.2 0.0 - 1.2 mg/dL 05/29/2024 1:10 PM CDT [facility] BILIRUBIN,DIRECT 0.3 0.0 - 0.3 mg/dL 05/29/2024 1:10 PM CDT [facility] BILIRUBIN,INDIRE CT 0.9(H) 0.2 - 0.8 mg/dL 05/29/2024 1:10 PM CDT [facility] ALK PHOSPHATASE 84 35 - 104 IU/L 05/29/2024 1:10 PM CDT [facility] ALT (SGPT) 58(H) 10 - 35 IU/L 05/29/2024 1:10 PM CDT [facility] AST (SGOT) 50(H) 10 - 35 IU/L 05/29/2024 1:10 PM CDT [facility] Blood BLOOD SPECIMEN / Unknown Venipuncture / Unknown 05/28/2024 12:43 PM CDT 05/28/2024 12:45 PM CDT Mary Garsia DO [facility] [address] [place] [address], [place] * US THYROID/PARATHYROID (05/14/2024 9:28 AM CDT) Anatomical Region Laterality Modality THYROID Ultrasound 05/15/2024 8:06 AM CDT Impressions 05/15/2024 8:06 AM CDT Stable 2.9 cm TR 4 nodule right thyroid lobe. Dictated by Ander Mcknight MD @ 05/15/2024 8:06:26 AM (Electronically Signed) Narrative 05/15/2024 8:06 AM CDT For Patients: ??As a result of the Century Cures Act, medical imaging exams and procedure reports are released immediately into your electronic medical record. ??You may view this report before your referring provider. ??If you have questions, please contact your health care provider. INDICATION: Thyroid nodule COMPARISON: 11/13/2023 TECHNIQUE: Robles scale and color Doppler images were acquired of the thyroid gland. FINDINGS: Isthmus measures 1.9 millimeter. Heterogeneous solid mass right thyroid lobe measures 2.9 x 2.8 x 2.1 cm, previously measuring 3.1 x 2.6 x 3.0 cm. The right lobe measures 4.0 x 1.4 x 2.6 cm and the left lobe measures 2.8 x 0.6 x 0.6 cm in size. The color Doppler images demonstrate normal vascularity. There is no evidence of cervical lymphadenopathy or parathyroid mass. Procedure Note Ander Mcknight MD - 05/15/2024 For Patients: As a result of the Cures Act, medical imagingexams and procedure reports are released immediately into your electronicmedical record. You may view this report before your referring provider.If you have questions, please contact your health care provider. INDICATION: Thyroid nodule COMPARISON: 11/13/2023 TECHNIQUE: Robles scale and color Doppler images were acquired of the thyroid gland. FINDINGS: Isthmus measures 1.9 millimeter. Heterogeneous solid mass right thyroidlobe measures 2.9 x 2.8 x 2.1 cm, previously measuring 3.1 x 2.6 x 3.0 cm.The right lobe measures 4.0 x 1.4 x 2.6 cm and the left lobe measures 2.8x 0.6 x 0.6 cm in size. The color Doppler images demonstrate normalvascularity. There is no evidence of cervical lymphadenopathy orparathyroid mass. IMPRESSION: Stable 2.9 cm TR 4 nodule right thyroid lobe. Dictated by Ander Mcknight MD @ 05/15/2024 8:06:26 AM (Electronically Signed) Mary Garsia DO [place] * ANAPLASMA EHRLICHIA SHANNA PANEL (04/15/2024 11:24 AM CDT) E chaffeensis (HME) IgG Titer Negative Neg:<1:64 04/19/2024 3:10 PM CDT [facility] E chaffeensis (HME) IgM Titer Negative Neg:<1:20 04/19/2024 3:10 PM CDT [facility] ([facility]) A. PHAGOCYTOPHILUM IGG Negative Neg:<1:64 04/19/2024 3:10 PM CDT [facility] ([facility]) A. PHAGOCYTOPHILUM IGM Negative Neg:<1:20 04/19/2024 3:10 PM CDT [facility] ([facility]) Comment: Due to a reagent backorder, this test was performed using a different assay. The reference interval for this alternate assay is: ? Negative ?<1:64 ? Positive ? 1:64 or greater RESULT COMMENT EHRLICHIA SHANNA Comment 04/19/2024 3:10 PM CDT [facility] ([facility]) Comment: Antibody titers may be negative in the first 7-10 days of illness. A four-fold rise in IgG antibody titers for Anaplasma phagocytophilum and/or Ehrlichia chaffeensis in paired samples (acute and convalescent) supports the diagnosis of anaplasmosis and/or ehrlichiosis, respectively. Blood BLOOD SPECIMEN / Unknown Venipuncture / Unknown 04/15/2024 11:24 AM CDT 04/15/2024 11:28 AM CDT Narrative [facility] ([facility]) - 04/19/2024 3:10 PM CDT Performed at: ??01 - [address] ??[id number] Senior Oracle Dba: Lizet Minor MD, Phone: ??[phone] Zoie VEGA SEND OUTS Performing Organization Address City/[facility]/ZIP Co de Phone Number [facility] (CET) [address] [place] [address], * ANAPLASMA EHRLICHIA DETECTION PCR (04/15/2024 11:24 AM CDT) A phagocytophilum PCR Negative Negative 04/22/2024 11:08 AM CDT [facility] ([facility]) Comment: No Anaplasma phagocytophilum DNA detected. ??A. phagocytophilum has been characterized as the causative agent of Human Granulocytic Ehrlichiosis (HGE). Ehrlichia chaffeensis PCR Negative Negative 04/22/2024 11:08 AM CDT [facility] ([facility]) Comment: No Ehrlichia chaffeensis DNA detected. ??E. chaffeensis has been characterized as the causative agent of Human Monocytic Ehrlichiosis (HME). Blood BLOOD SPECIMEN / Unknown Venipuncture / Unknown 04/15/2024 11:24 AM CDT 04/15/2024 11:28 AM CDT Narrative [facility] ([facility]) - 04/22/2024 11:08 AM CDT Test(s) 588469-F. phagocytophilum PCR; 302460- Ehrlichia chaffeensis PCR was developed and its performance characteristics determined by [facility]. It has not been cleared or approved by the Food and Drug Administration. Performed at: ??01 - [facility] [address] [place] [address] ??[id number] Senior Oracle Dba: Lizet Minor MD, Phone: ??[phone] Zoie VEGA SEND OUTS [facility] ([facility]) [address] [place] [address], * BABESIA MICROTI SHANNA IGG IGM PANEL (04/15/2024 11:24 AM CDT) B microti IgG <1:10 Neg:<1:10 04/19/2024 12:09 PM CDT [facility] ([facility]) B microti IgM <1:10 Neg:<1:10 04/19/2024 12:09 PM CDT [facility] ([facility]) RESULT COMMENT BABESIA MICROTI SHANNA Comment 04/19/2024 12:09 PM CDT [facility] ([facility]) Comment: Diagnosis of acute babesiosis cannot be confirmed solely by the presence of antibody in a serum sample collected at a single time point. Babesia microti (B. microti) IgG antibody titers >=1:1024 and/or a positive B. microti IgM antibody IFA result are suggestive of active or recent B. microti infection. PCR or peripheral blood smear should be considered to confirm acute infection. Blood BLOOD SPECIMEN / Unknown Venipuncture / Unknown 04/15/2024 11:24 AM CDT 04/15/2024 11:28 AM CDT Narrative [facility] ([facility]) - 04/19/2024 12:09 PM CDT Test(s) 674999-Nycdyfm microti IgG; 402404-Tbuosvf microti IgM was developed and its performance characteristics determined by [facility]. It has not been cleared or approved by the Food and Drug Administration. Performed at: ??[address] - [address] ??[id number] Senior Oracle Dba: Lizet Minor MD, Phone: ??[phone] Zoie VEGA SEND OUTS [facility] ([facility]) [address] [place] [address], * LYME SCREEN W/REFLEX (04/15/2024 11:24 AM CDT) Pathologist [facility] LYME SCREEN W/REFLEX Negative Negative 04/16/2024 8:09 AM CDT [facility] Comment: No laboratory evidence of infection with B. burgdorferi (Lyme disease). Negative results may occur in patients recently infected (less than or equal to 14 days) with B. burgdorferi. If recent infection is suspected, repeat testing on a new sample collected in 7-14 days is recommended. Blood BLOOD SPECIMEN / Unknown Venipuncture / Unknown 04/15/2024 11:24 AM CDT 04/15/2024 11:28 AM CDT Zoie EVGA SEND OUTS Performing Organization Address City/[facility] Co de Phone Number [facility] [address] [place] [address], * POTASSIUM (04/15/2024 11:24 AM CDT) POTASSIUM 4.9 3.5 - 5.1 mmol/L 04/16/2024 3:30 AM CDT [facility] Blood BLOOD SPECIMEN / Unknown Venipuncture / Unknown 04/15/2024 11:24 AM CDT 04/15/2024 11:29 AM CDT Mary Garsia DO CHEMISTRY Performing Organization Address [facility] de Phone Number [facility] [address] [place] [address], * (ABNORMAL) HEMOGLOBIN A1C MONITORING (POCT) (04/15/2024 11:24 AM CDT) HEMOGLOBIN A1C MONITORING (POCT) 7.3(H) <=6.4 % 04/15/2024 11:39 AM CDT [facility] Blood BLOOD SPECIMEN / Unknown Venipuncture / Unknown 04/15/2024 11:24 AM CDT 04/15/2024 11:29 AM CDT Narrative [facility] - 04/15/2024 11:39 AM CDT ? (<=6.9%) ? Indicates good control ? (7.0% to 7.9%) ? Indicates fair control ? (>=8.0%) ? Indicates poor control ?? NOTE: ??These thresholds are guidelines and ?individual targets may vary. Falsely low levels may be seen with: Recent Transfusion, Recent Significant Blood Loss, Hemolytic Diseases, or Falsely elevated levels may be seen with: Untreated Anemias, Splenectomy ? Mary Garsia DO CHEMISTRY [facility] [address] [place] [address], * SCAN-EYE EXAM (04/05/2024 12:00 AM CDT) Scanner OTHER * US PELVIS COMPLETE TA AND TV (04/02/2024 5:35 PM CDT) Anatomical Region Laterality Modality Pelvis Ultrasound 04/03/2024 7:16 AM CDT Narrative 04/03/2024 7:16 AM CDT For Patients: ??As a result of the Cures Act, medical imaging exams and procedure reports are released immediately into your electronic medical record. ??You may view this report before your referring provider. ??If you have questions, please contact your health care provider. INDICATION: Left lower quadrant abdominal pain. History of ovarian cancer, hysterectomy and BSO. TECHNIQUE: Ultrasound pelvis transabdominal and transvaginal COMPARISON: Abdomen pelvis CT 01/31/2023 FINDINGS/impression: The uterus and ovaries have been surgically removed. Calcifications at the level of the cervix similar to those noted on the prior CT. Bladder normal. No obvious pelvic mass or fluid noted. Correlation with CT may be of value. Dictated by Davina Gordillo MD @ 04/03/2024 7:16:04 AM (Electronically Signed) Procedure Note Maxi Gordillo MD - 04/03/2024 For Patients: As a result of the Cures Act, medical imagingexams and procedure reports are released immediately into your electronicmedical record. You may view this report before your referring provider.If you have questions, please contact your health care provider. INDICATION: Left lower quadrant abdominal pain. History of ovarian cancer,hysterectomy and BSO. TECHNIQUE: Ultrasound pelvis transabdominal and transvaginal COMPARISON: Abdomen pelvis CT 01/31/2023 FINDINGS/impression: The uterus and ovaries have been surgically removed. Calcifications at thelevel of the cervix similar to those noted on the prior CT. Bladdernormal. No obvious pelvic mass or fluid noted. Correlation with CT may beof value. Dictated by Davina Gordillo MD @ 04/03/2024 7:16:04 AM (Electronically Signed) Mary Garsia DO US * URINALYSIS MICROSCOPIC (03/15/2024 1:14 PM CDT) RBC 0-2 0-2, None Seen /HPF 03/15/2024 1:21 PM CDT [facility] WBC 3-5 0-2, 3-5, None Seen /HPF 03/15/2024 1:21 PM CDT [facility] BACTERIA Few None Seen, Rare, Few Bacteria/H PF 03/15/2024 1:21 PM CDT [facility] EPITHELIAL CELLS Few None Seen, Few Epi/HPF 03/15/2024 1:21 PM CDT [facility] Urine URINE SPECIMEN / Unknown Non-Blood / Unknown 03/15/2024 1:14 PM CDT 03/15/2024 1:14 PM CDT Narrative [facility] - 03/15/2024 1:21 PM CDT <1.5 ml. ??QNS for accurate microscopic exam. ??Microscopic done on unspun urine. Maria Victoria Eduardo MD URINE [facility] [address] [place] [address], [place] [phone] * URINE CULTURE (03/15/2024 1:14 PM CDT) CULTURE No growth (<1,000 CFU/mL) 03/16/2024 3:37 PM CDT [facility] Urine URINE SPECIMEN / Unknown Non-Blood / Unknown 03/15/2024 1:14 PM CDT 03/15/2024 1:14 PM CDT Maria Victoria Eduardo MD MICROBIOLOGY [facility] [address] [place] [address], [place] * (ABNORMAL) UA W/ SEDIMENT EXAM REFLEXED PER CRITERIA (03/15/2024 1:14 PM CDT) COLOR Yellow Yellow Color 03/15/2024 1:21 PM CDT [facility] CLARITY Clear Clear Clarity 03/15/2024 1:21 PM CDT [facility] SPECIFIC GRAVITY,URINE 1.015 1.010, 1.015, 1.020, 1.025 03/15/2024 1:21 PM CDT [facility] PH,URINE 5.5 6.0, 7.0, 8.0, 5.5, 6.5, 7.5, 8.5 03/15/2024 1:21 PM CDT [facility] UROBILINOGEN, QUALITATIVE Normal Normal EU/dl 03/15/2024 1:21 PM CDT [facility] PROTEIN, URINE Negative Negative mg/dL 03/15/2024 1:21 PM CDT [facility] GLUCOSE, URINE Negative Negative mg/dL 03/15/2024 1:21 PM CDT [facility] KETONES,URINE Negative Negative mg/dL 03/15/2024 1:21 PM CDT [facility] BILIRUBIN,URI NE Negative Negative 03/15/2024 1:21 PM CDT [facility] OCCULT BLOOD,URINE Trace(A) Negative 03/15/2024 1:21 PM CDT [facility] NITRITE Negative Negative 03/15/2024 1:21 PM CDT [facility] LEUKOCYTE ESTERASE Large(A) Negative 03/15/2024 1:21 PM CDT [facility] Urine URINE SPECIMEN / Unknown Non-Blood / Unknown 03/15/2024 1:14 PM CDT 03/15/2024 1:14 PM CDT Maria Victoria Eduardo MD URINE [facility] [place] [address], [place] [phone] * XR MAMMO CORETTA BILAT SCREEN (11/13/2023 8:27 AM CLOCK ASSEMBLER) Anatomical Region Laterality Modality BREASTS, Breast Left, Breast Right Bilateral Mammography Impressions 11/14/2023 3:49 PM CLOCK ASSEMBLER ??There is no radiographic evidence for malignancy. ??Recommend annual mammograms. MAMMOGRAM ASSESSMENT: ??ACR 1 Negative PATIENTS: You will also receive a letter with your examination results in an easy to read format. ??If you have questions about your results, please contact your referring provider. Narrative 11/14/2023 3:49 PM CLOCK ASSEMBLER For Patients: As a result of the Century Cures Act, medical imaging exams and procedure reports are released immediately into your electronic medical record. You may view this report before your referring provider. If you have questions, please contact your health care provider. XR MAMMO CORETTA BILAT SCREEN [[id number]] CLINICAL HISTORY: ??This is an asymptomatic 68 y.o. patient. INDICATION FOR EXAM: Mammogram Screening. TECHNIQUE: CC & MLO views were obtained. ??This study was evaluated with the assistance of Computer-Aided Detection. Breast Tomosynthesis was used in interpretation. COMPARISON FILM: Yes 07/25/22 Phoneplus 06/23/21 Phoneplus FINDINGS: ??The breasts are heterogeneously dense, which may obscure small masses. There are no dominant masses, suspicious micro calcifications or areas of architectural distortion. Mary Garsia DO MAMMO * (ABNORMAL) LC LIPID PANEL AND CHOL/HDL RATIO (02/06/2023 10:45 AM CDT) Cholesterol, Total 284(H) 100 - 199 mg/dL 02/08/2023 9:10 AM CDT [facility] ([facility]) Triglycerides 277(H) 0 - 149 mg/dL 02/08/2023 9:10 AM [facility] ([facility]) HDL Cholesterol 44 >39 mg/dL 9:10 AM [facility] ([facility]) VLDL Cholesterol Dilip 54(H) 5 - 40 mg/dL 02/08/2023 9:10 AM [facility] ([facility]) LDL Chol Calc ([facility]) 186(H) 0 - 99 mg/dL 02/08/2023 9:10 AM [facility] ([facility]) T. Chol/HDL Ratio 6.5(H) 0.0 - 4.4 ratio 02/08/2023 9:10 AM [facility] ([facility]) Comment: ?T. Chol/HDL Ratio ?Men ??Women ?1/2 Avg.Risk ??3.4 ?3.3 ?Avg.Risk ??5.0 ?4.4 ? 2X Avg.Risk ??9.6 ?7.1 ? 3X Avg.Risk 23.4 ?? 11.0 Blood BLOOD SPECIMEN / Unknown Venipuncture / Unknown 02/06/2023 10:45 AM CDT 02/06/2023 10:48 AM CDT Narrative [facility] ([facility]) - 02/08/2023 9:10 AM CDT Performed at: ??01 - [facility] ??[id number] Senior Oracle Dba: Herber Griffith MD, Phone: ??[phone] Mary Garsia DO SEND OUTS [facility] ([facility]) [facility] [place] [address], * ANTI HCV (03/15/2022 11:16 AM CDT) HEPATITIS C ANTIBODY Non-React aida Non-React aida 03/15/2022 6:51 PM CDT [employer] [facility] Comment:Antibodies to HCV no t detected; does not exclude the possibility of exposure to HCV. Blood BLOOD SPECIMEN / Unknown Venipuncture / Unknown 03/15/2022 11:16 AM CDT 03/15/2022 11:24 AM CDT Mary Garsia DO SEND OUTS [facility] [address] [place] [address], [place] * XR DXA BONE DENSITY 2 SITES AXIAL (06/23/2021 2:43 PM CDT) Anatomical Region Laterality Modality Spine, HIPS, HIPL, HIPR Other Impressions 06/29/2021 1:56 PM CDT Normal bone density. RECOMMENDATIONS: The [employer] recommends pharmacologic treatment for patients with T-scores of -2.5 or less, patients with prior history of fragility fractures, or patients with 10-year probability of greater than 3% at hips or greater than 20% of suffering major osteoporotic fractures. Recommend continued optimization of calcium and vitamin D intake through dietary means and/or supplementation and regular exercise. Repeat scan recommended in 3-5 years. Andreina Hernandes PA-C [facility] 06/29/2021 Narrative 06/29/2021 1:56 PM CDT For Patients: Results are automatically released to your [facility] ([employer] account once available, in compliance with federal regulations. This means that you may see your results before your provider has had a chance to review them. Please allow 2-3 business days for your provider to comment on the results. XR DXA Bone Mineral Density (BMD) EXAM LOCATION: [address] [address] [id number] PATIENT NAME: Sydnee Kim DATE OF : 1955 EXAM DATE: 06/23/2021 REQUESTING PROVIDER: Elle Calabrese PA GENDER AT : female HEIGHT: 5' 4.75 (05/20/2021) WEIGHT: ??190 lb (06/16/2021) MENOPAUSAL STATUS: Postmenopausal RACE/ETHNICITY: White RISK FACTORS: White Race CURRENT MEDICATION FOR BONE LOSS: NONE INDICATION: Initial scan for screening COMPARISON DATE(S): None DXA scans are compared to prior studies for a patient only when the two (or more) studies were performed on the same scanner. It is not possible to compare data generated on one scanner to data from another because there are not standards in DXA equipment. This applies even if the two scanners are made by the same deputy sheriff bailiff. PROCEDURE: Dual-energy x-ray absorptiometry performed with routine technique. Reporting is completed in the form of a T-score. The T-score represents the standard deviation from peak bone mass based on young healthy adult. A Z-score is used for diagnosis in premenopausal women, and for men under the age of 50. FINDINGS: RESULT LUMBAR SPINE L2 - L4 ??BMD: 1.657 g/cm2 T-Score: + 3.5 Z-Score: + 4.4 RESULT FEMORAL NECK Right Femoral Neck T-Score: + 0.1 Left Femoral Neck T-Score: + 0.0 ?? Right Femoral Neck Z-Score: + 1.1 Left Femoral Neck Z-Score: + 1.0 RESULT TOTAL HIP Total Hip T-Score: + 0.9 Total Hip Z-Score: + 1.6 WHO criteria: Normal: T-score at or above -1 SD Osteopenia: T-score between -1.1 and -2.4 SD Osteoporosis: T-score at or below -2.5 SD Elle VEGA DEXA from Last 3 Months or Most Recently Relevant to Health Maintenance Advance Directives * Full Code (Latest Code Status on File) Date Activated Date Inactivated Comments 05/07/2020 10:06 AM 05/11/2020 4:20 PM Care Teams Bagging Salvager Relationship Specialty Start Date End Date Mary Garsia DO [address] [place] [address] PCP - General Family Practice 12/30/13 Carmenza Crowder MD [address] [place] [address] Unknown Physician Specialty 03/04/14 Laura Myers MD [address] [place] [address] Obstetrics and Gynecology 06/16/[address] [place] [address] Television Maintenance Man Roll Handler 03/28/22
--- NOTE | 2024-06-05 13:45 | CRLHL7_ITS ---
For Patients: As a result of the Century Cures Act, medical imaging exams and procedure reports are released immediately into your electronic medical record. You may view this report before your referring provider. If you have questions, please contact your health care provider. INDICATION: Pain. COMPARISON: None. TECHNIQUE: Axial T1 and PD fat-sat, sagittal PD and T2 fat sat and coronal PD and STIR left knee. FINDINGS: Medial compartment: Meniscus: Intact. Articular cartilage: Uniform. MCL: Intact. Cruciate ligaments: ACL: Intact. PCL: Intact. Lateral compartment: Meniscus: Degenerative longitudinal tearing in the midbody near full-thickness. Horizontal undersurface tearing extends from this through the anterior horn to the small anterior insertion. No internal displaced meniscal tissue. Articular cartilage: Up to grade 4 cartilage loss in the plateau and posterior condylar sclerosis edema and cysts and small marginal osteophytes. Lateral collateral complex: Intact. Patellofemoral compartment: Grade 2 thinning in the inferior lateral facet with shallow subchondral cysts. Trochlear cartilage shows mild grade 2 thinning inferior trochlea medial margin. Extensor mechanism: Distal quadriceps tendon and patellar tendon are intact with anatomic patellar alignment. Bones and soft tissues: Moderately large effusion. No intra-articular body or significant synovitis. Small popliteal cyst. No fracture. No bone lesion. IMPRESSION: 1. Degenerative tearing lateral meniscus. 2. Moderate osteoarthritis lateral compartment. Minor osteoarthritis patellofemoral compartment. 3. Moderately large reactive effusion. 4. Small popliteal cyst. Dictated by Scottie Monroy MD @ 06/06/2024 4:05:50 PM (Electronically Signed)
--- NOTE | 2024-06-05 14:30 | CRLHL7_ITS ---
For Patients: As a result of the Century Cures Act, medical imaging exams and procedure reports are released immediately into your electronic medical record. You may view this report before your referring provider. If you have questions, please contact your health care provider. Indication: Dizziness. Technique: Noncontrast sagittal T1, axial FLAIR, T2, diffusion weighted sequences are provided. No comparisons. Findings: The ventricles, sulci and gyri are normal size, shape and contour for age. The midline structures are centrally located with no evidence of shift. There are no suspicious intra or extra-axial fluid collections. No region of restricted diffusion. Expected flow voids in the cavernous carotids and basilar artery. Minimal scattered foci of increased T2 signal within the supratentorial white matter that are non-specific. Mild opacification of the inferior left mastoid air cells. Impression: 1. No radiographic evidence of acute intracranial abnormalities. 2. Minimal supratentorial white matter change that is nonspecific but in a patient of this age statistically most likely related to chronic small vessel ischemic change. 3. Likely benign inflammatory fluid within the inferior left mastoid air cells. Dictated by Ajith Redd MD @ 06/05/2024 6:43:34 PM (Electronically Signed)
== END 2024-06-05 12:36 | disposition home or self-care (01) ==
PROVIDERS: PCP Family Medicine; Visit Provider Physician Assistant
DX: M25.562 Pain in left knee (principal); M25.462 Effusion, left knee; M71.22 Synovial cyst of popliteal space [Baker], left knee; R42 Dizziness and giddiness
CPT/HCPCS: 70551; 73721